=== PATIENT | female | born 1970 | race Caucasian/White ===

== ENCOUNTER 2017-06-15 17:50 | Emergency (ER) | payer BC ==
[~2017-06-15] VITALS: Ht 160 cm; Wt 59.0 kg
[2017-06-15 17:55] VITALS: Ht 160 cm; Wt 59.0 kg
[2017-06-15 21:38] VITALS: BP 120/69
== END 2017-06-15 21:39 | disposition home or self-care (01) ==
LOC: ED 17:50
DX: N76.0 Acute vaginitis (principal)
CPT/HCPCS: 87491; 87591; J0696; J2001; Q0162